=== PATIENT | male | born 1950 | race Caucasian/White ===

== ENCOUNTER 2019-10-09 11:21 | Outpatient (RCR) | payer MEDICAID, SELFPAY | END 2019-10-09 23:59 | disposition home or self-care (01) | LOC: ANHAUDIO 11:21 | PROVIDERS: PCP Internal Medicine; Visit Provider Internal Medicine | DX: Z46.1 Encounter for fitting and adjustment of hearing aid (principal) | CPT/HCPCS: 99199; V5014 ==

== ENCOUNTER 2020-05-05 08:30 | Outpatient (RCR) | payer MEDICAID, SELFPAY | END 2020-05-05 23:59 | disposition home or self-care (01) | LOC: ANHAUDIO 08:30 | PROVIDERS: PCP Internal Medicine | DX: Z46.1 Encounter for fitting and adjustment of hearing aid (principal) | CPT/HCPCS: 99199 ==

== ENCOUNTER 2020-05-14 08:53 | Outpatient (CLI) | payer MEDICARE, MEDICAID, SELFPAY | END 2020-05-14 08:54 | disposition home or self-care (01) | LOC: ANHAUDIO 08:55 | PROVIDERS: PCP Internal Medicine; Visit Provider Internal Medicine | DX: H90.3 Sensorineural hearing loss, bilateral (principal) | CPT/HCPCS: 92557; 92567 ==

== ENCOUNTER 2021-01-01 09:43 | Outpatient (RCR) | payer MEDICAID, SELFPAY | END 2021-01-01 09:44 | disposition home or self-care (01) | LOC: ANHAUDIO 09:43 | PROVIDERS: PCP Internal Medicine; Visit Provider Internal Medicine | DX: Z46.1 Encounter for fitting and adjustment of hearing aid (principal) | CPT/HCPCS: 99199; V5014; V5160; V5261 ==

== ENCOUNTER 2021-03-22 15:00 | Outpatient (RCR) | payer OTHER, SELFPAY | END 2021-03-22 23:59 | disposition home or self-care (01) | LOC: ANHAUDIO 15:00 | PROVIDERS: PCP Internal Medicine; Visit Provider Internal Medicine | DX: Z46.1 Encounter for fitting and adjustment of hearing aid (principal) | CPT/HCPCS: 99199 ==

== ENCOUNTER 2021-09-15 10:30 | Outpatient (RCR) | payer OTHER, SELFPAY | END 2021-09-15 23:59 | disposition home or self-care (01) | LOC: ANHAUDIO 10:30 | PROVIDERS: PCP Internal Medicine; Visit Provider Internal Medicine | DX: Z46.1 Encounter for fitting and adjustment of hearing aid (principal) | CPT/HCPCS: 99199 ==